=== PATIENT | female | born 1950 ===

== ENCOUNTER → 2018-12-10 23:24 | Outpatient (REF) | payer SELFPAY ==
[2018-12-11 02:36] LABS: Free T3, Triiodothyronine Free 3.09 pg/mL (2.77-5.27); Free T4, Direct Thyroxine 1.33 ng/dL (0.78-2.19)
[2018-12-11 10:38] LABS: Thyroid Stimulating Hormone 1.34 uIU/mL (0.47-4.68)
== END ==
LOC: LAB 23:24
PROVIDERS: Visit Provider Naturopath
DX: E03.9 Hypothyroidism, unspecified (principal)
CPT/HCPCS: 36415; 84439; 84443; 84481